=== PATIENT | female | born 1990 | race Caucasian/White ===

== ENCOUNTER → 2017-12-07 | Emergency (ER) | payer OTHER ==
[~2017-12-07] VITALS: Ht 160 cm; Wt 55.8 kg
[~2017-12-07] MED LIST: KETO10TA2 PO
== END | disposition home or self-care (01) ==
LOC: ER 18:34
DX: R10.2 Pelvic and perineal pain (principal)

== ENCOUNTER 2019-10-17 05:43 | Emergency (ER) | payer OTHER ==
[~2019-10-17] VITALS: Ht 162.6 cm; Wt 54.4 kg
== END 2019-10-17 11:25 | disposition home or self-care (01) ==
LOC: ER 05:43
DX: K29.60 Other gastritis without bleeding (principal); J11.1 Influenza due to unidentified influenza virus with other respiratory manifestations; B96.0 Mycoplasma pneumoniae [M. pneumoniae] as the cause of diseases classified elsewhere

== ENCOUNTER 2022-06-15 12:09 | Emergency (ER) | payer OTHER ==
[~2022-06-15] VITALS: Ht 154.9 cm; Wt 54.9 kg
[2022-06-15] MEDS ORDERED: ZYRTEC10 MG PO (12:55)
[2022-06-15] MEDS ORDERED: ANTICONCEPTIVO (12:55)
[2022-06-15] MEDS ORDERED: MEDROLPACK PO (16:02)
[2022-06-15] MEDS ORDERED: TUSSI PRES-B L480 ML PO (16:02)
[2022-06-15] MEDS ORDERED: SINUS RINSE ST1 EACH NASAL (16:03)
[2022-06-15] MEDS ORDERED: FLONASE ALLERG9.9 ML NASAL (16:03)
== END 2022-06-15 16:49 | disposition home or self-care (01) ==
LOC: ER 12:09
DX: J06.9 Acute upper respiratory infection, unspecified (principal)